=== PATIENT | female | born 1990 | race Caucasian/White ===

== ENCOUNTER 2016-10-30 17:39 | Emergency (ER) | payer OTHER ==
[2016-10-30 17:58] VITALS: BP 102/76; PULSE 109; TEMP 98.2; BMI 25.0
--- NOTE | 2016-10-30 17:59 | PDOC ---
History of Present Illness <Amada Camarillo - Last Filed: 10/30/16 23:55> <Sabina Mukherjee - Last Filed: 10/31/16 01:45> - General Chief Complaint: Syncope/Near Syncope Stated Complaint: SYNCOPE Time Seen by Provider: 10/30/16 17:42 - History of Present Illness Initial Comments: 10/30/16 20:12 The patient is a 26 year old female, , with no significant past medical history, who presents to the emergency department with s/p syncopal episode in the supermarket today. The patient states she fainted while shopping today, however, her caught her before she could fall to the floor. The patient reports one episode of vomiting yesterday. The patient reports her LMP was August 2016 and reports giving 5 months ago. She denies any vaginal bleeding since her last menstrual cycle. The patient also reports she stopped breast feeding 2 months ago. She denies chest pain, shortness of breath, headache and dizziness. She denies fever, chills, nausea, vomit, diarrhea and constipation. She denies dysuria, frequency, urgency and hematuria. Allergies: NKDA PCP - Dr. Winter Zuniga (Sabina Mukherjee) Past History - Past Medical History Asthma: No Cancer: No Cardiac Disorders: No Diabetes: No HTN: No Seizures: No Thyroid Disease: No Other medical history: - Psycho/Social/Smoking Cessation Hx Anxiety: No Suicidal Ideation: No Smoking History: Never smoked Have you smoked in the past 12 months: No Information on smoking cessation initiated: No Hx Alcohol Use: No Drug/Substance Use Hx: No Substance Use Type: None Hx Substance Use Treatment: No <Amada Camarillo - Last Filed: 10/30/16 23:55> <Sabina Mukherjee - Last Filed: 10/31/16 01:45> - Past Medical History Allergies/Adverse Reactions: Allergies Allergy/AdvReac Type Severity Reaction Status Date / Time No Known Allergies Allergy Verified 10/30/16 17:57 Home Medications: Ambulatory Orders NK [No Known Home Medication] 10/30/16 Review of Systems <Amada Camarillo - Last Filed: 10/30/16 23:55> - Review of Systems Able to Perform ROS?: Yes <Sabina Mukherjee - Last Filed: 10/31/16 01:45> - Review of Systems Comments:: 10/30/16 20:17 CONSTITUTIONAL: Absent: fever, chills, diaphoresis, generalized weakness, malaise, loss of appetite HEENT: Absent: rhinorrhea, nasal congestion, throat pain, throat swelling, difficulty swallowing, mouth swelling, ear pain, eye pain, visual Changes CARDIOVASCULAR: Absent: chest pain, syncope, palpitations, irregular heart rate, lightheadedness , peripheral edema RESPIRATORY: Absent: cough, shortness of breath, dyspnea with exertion, orthopnea, wheezing, stridor, hemoptysis GASTROINTESTINAL: (+) nausea, vomiting. Absent: abdominal pain, abdominal distension, diarrhea, constipation, melena, hematochezia GENITOURINARY: Absent: dysuria, frequency, urgency, hesitancy, hematuria, flank pain, genital pain MUSCULOSKELETAL: Absent: myalgia, arthralgia, joint swelling SKIN: Absent: rash, itching, pallor HEMATOLOGIC/IMMUNOLOGIC: Absent: easy bleeding, easy bruising, lymphadenopathy, frequent infections ENDOCRINE: Absent: unexplained weight gain, unexplained weight loss, heat intolerance, cold intolerance NEUROLOGIC: (+) Syncope. Absent: headache, focal weakness or paresthesias, dizziness, unsteady gait, seizure, mental status changes, bladder or bowel incontinence PSYCHIATRIC: Absent: anxiety, depression, suicidal or homicidal ideation, hallucinations. (Sabina Mukherjee) *Physical Exam <Amada Camarillo - Last Filed: 10/30/16 23:55> <Sabina Mukherjee - Last Filed: 10/31/16 01:45> - Vital Signs Last Vital Signs Temp Pulse Resp BP Pulse Ox 98.2 F 109 H 18 102/76 100 10/30/16 17:53 10/30/16 17:53 10/30/16 17:53 10/30/16 17:53 10/30/16 17:53 - Physical Exam Comments: 10/30/16 20:18 GENERAL: Well developed, well nourished. Awake and alert. No acute distress. HEENT: Normocephalic, atraumatic. PERRLA, EOMI. No conjunctival pallor. Sclera are non- icteric. Moist mucous membranes. Oropharynx is clear. NECK: Supple. Full ROM. No JVD. Carotid pulses 2+ and symmetric, without bruits. No thyromegaly. No lymphadenopathy. CARDIOVASCULAR: (+) tachycardic and normal rhythm. No murmurs, rubs, or gallops. Distal pulses are 2+ and symmetric. PULMONARY: No evidence of respiratory distress. Lungs clear to auscultation bilaterally. No wheezing, rales or rhonchi. ABDOMINAL: Soft. Non-tender. Non-distended. No rebound or guarding. No organomegaly. Normoactive bowel sounds. MUSCULOSKELETAL Normal range of motion at all joints. No bony deformities or tenderness. No CVA tenderness. EXTREMITIES: No cyanosis. No clubbing. No edema. No calf tenderness. SKIN: Warm and dry. Normal capillary refill. No rashes. No jaundice. NEUROLOGICAL: Alert, awake, appropriate. Cranial nerves 2-12 intact. Normoreflexic in the upper and lower extremities. Normal speech. Toes are down-going bilaterally. Gait is normal without ataxia. PSYCHIATRIC: Cooperative. Good eye contact. Appropriate mood and affect. (Sabina Mukherjee) Heart Score/ECG Review <Amada Camarillo - Last Filed: 10/30/16 23:55> <Sabina Mukherjee - Last Filed: 10/31/16 01:45> - [place] Comment: 10/30/16 20:20 EKG was read by Dr. Camarillo at 18:06 Impression: Normal sinus rhythm (Sabina Mukherjee) ED Treatment Course - LABORATORY CBC & Chemistry Diagram: 10/30/16 18:02 10/30/16 18:02 <Amada Camarillo - Last Filed: 10/30/16 23:55> - LABORATORY CBC & Chemistry Diagram: 10/30/16 18:02 10/30/16 18:02 <Sabina Mukherjee - Last Filed: 10/31/16 01:45> - ADDITIONAL ORDERS Additional order review: Laboratory Results 10/30/16 10/30/16 10/30/16 19:39 19:39 18:02 INR Sodium Potassium Chloride Carbon Dioxide Anion Gap BUN Creatinine Creat Clearance w eGFR Random Glucose Calcium Total Bilirubin AST ALT Alkaline Phosphatase Creatine Kinase Troponin I Total Protein Albumin Beta HCG, Quant 42167.2 Serum , Qual Positive Urine Color Urine Appearance Urine pH Ur Specific [place] Urine Protein Urine Glucose (UA) Urine Ketones Urine Blood Urine Nitrite Urine Bilirubin Urine Urobilinogen Ur Leukocyte Esterase Urine RBC Urine WBC Ur Epithelial Cells Urine Mucus Opiates Screen Negative Methadone Screen Negative Barbiturate Screen Negative Phencyclidine Screen Negative Ur Amphetamines Screen Negative MDMA (Ecstasy) Screen Negative Benzodiazepines Screen Negative Cocaine Screen Positive U Marijuana (THC) Screen Negative Blood Type Antibody Screen 10/30/16 10/30/16 10/30/16 18:02 18:02 18:02 INR Sodium 136 Potassium 3.3 L Chloride 105 Carbon Dioxide 19 L Anion Gap 12 BUN 10 D Creatinine 0.6 Creat Clearance w eGFR > 60 Random Glucose 93 Calcium 7.9 L Total Bilirubin 0.3 AST 13 L ALT 23 Alkaline Phosphatase 42 L Creatine Kinase 37 Troponin I < 0.02 Total Protein 6.6 Albumin 3.2 L Beta HCG, Quant Serum , Qual Urine Color Ltyellow Urine Appearance Clear Urine pH 6.0 Ur Specific [place] 1.008 Urine Protein Negative Urine Glucose (UA) Negative Urine Ketones 1+ H Urine Blood 3+ H Urine Nitrite Negative Urine Bilirubin Negative Urine Urobilinogen Negative Ur Leukocyte Esterase Trace H Urine RBC 3 Urine WBC 4 Ur Epithelial Cells Rare Urine Mucus Rare Opiates Screen Methadone Screen Barbiturate Screen Phencyclidine Screen Ur Amphetamines Screen MDMA (Ecstasy) Screen Benzodiazepines Screen Cocaine Screen U Marijuana (THC) Screen Blood Type A POSITIVE Antibody Screen Negative 10/30/16 18:02 INR 1.13 Sodium Potassium Chloride Carbon Dioxide Anion Gap BUN Creatinine Creat Clearance w eGFR Random Glucose Calcium Total Bilirubin AST ALT Alkaline Phosphatase Creatine Kinase Troponin I Total Protein Albumin Beta HCG, Quant Serum , Qual Urine Color Urine Appearance Urine pH Ur Specific [place] Urine Protein Urine Glucose (UA) Urine Ketones Urine Blood Urine Nitrite Urine Bilirubin Urine Urobilinogen Ur Leukocyte Esterase Urine RBC Urine WBC Ur Epithelial Cells Urine Mucus Opiates Screen Methadone Screen Barbiturate Screen Phencyclidine Screen Ur Amphetamines Screen MDMA (Ecstasy) Screen Benzodiazepines Screen Cocaine Screen U Marijuana (THC) Screen Blood Type Antibody Screen 10/30/16 18:02 RBC 3.03 L MCV 79.6 L MCHC 32.4 RDW 20.2 H D MPV 8.6 D Neutrophils % 82.6 Lymphocytes % 10.0 D Monocytes % 6.6 Eosinophils % 0.4 Basophils % 0.4 - RADIOLOGY Radiograph Interpretation: 10/30/16 23:03 Transvaginal US was read by Lea Chavez M.D.at 22:58 FINDINGS: Enlarged uterus. No visible intrauterine gestational sac. Hypervascular and markedly thickened endometrium, 5.8 cm thick. No adnexal masses appreciated. Findings suspicious for molar , but advise correlation with quantitative serial beta-hCG and follow-up ultrasound as clinically indicated to exclude possibility of nonvisualized ectopic . No ovarian torsion. Bilateral arterial and venous waveforms. Complex 2.8 cm corpus luteum left ovary. No free fluid. Unremarkable visualized portion of bladder. (Sabina Mukherjee) - Medications Given in the ED: ED Medications Discontinued Medications Generic Name Dose Route Start Last Admin Trade Name Freq PRN Reason Stop Dose Admin Sodium Chloride 1,000 mls @ 1,000 mls/hr 10/30/16 18:03 10/30/16 18:13 Normal Saline - IV 10/30/16 19:02 1,000 mls/hr ASDIR STA Administration Potassium Chloride 20 meq 10/30/16 19:50 10/30/16 20:24 K-Dur - PO 10/30/16 19:51 20 meq ONCE ONE Administration Medical Decision Making <Amada Camarillo - Last Filed: 10/30/16 23:55> <Sabina Mukherjee - Last Filed: 10/31/16 01:45> - Medical Decision Making 10/30/16 23:31 26 yo female had a fainting episode and her was [id number] caught her before she fell -no head trauma - no chest pain,no sob,no vaginal bleeding,no fever,no vomiting,no headache -labs reviewed -she has anemia. She denies any acute bleeding at this time -drug screen + cocaine -found to be and bhcg >29,000 PELVIC US-NO IUP -CONCERN FOR MOLAR -spoke w Dr Noel and this pt is to be seen in clinic in the morning -using a pork cutlet maker it was explained to this pt that is was very important to see the hardboard coating machine operator in the morning and that this preg will require Dand E (Amada Camarillo) 10/31/16 Dr. Noel ([facility] CHEMIST On-Call) was contacted for doctor to doctor consult and the patient's case was discussed. (Sabina Mukherjee) *DC/Admit/Observation/Transfer <Amada Camarillo - Last Filed: 10/30/16 23:55> <Sabina Mukherjee - Last Filed: 10/31/16 01:45> Diagnosis at time of Disposition: Positive test, Molar Anemia Qualifiers: Anemia type: other cause Other causes of anemia: other cause, not classified Qualified Code(s): D64.89 - Other specified anemias Fainting Qualifiers: Syncope type: unspecified Qualified Code(s): R55 - Syncope and collapse - Discharge Dispostion Disposition: HOME Condition at time of disposition: Stable - Referrals Referrals: Maria E Noel MD [Staff Physician] - - Patient Instructions Printed Discharge Instructions: DI for -- Discomforts and Remedies, DI for Syncope in Adults (Fainting) Additional Instructions: There is an abnormal finding on your pelvic ultrasound and there is concern for a MOLAR You have a positive test but no fetus is seen on the ultrasound TOMORROW you need to go to the clinic at [address] [place] [address] NOEL and DR MENDOZA will be. Go to the clinic at [address] [place] [address] ( [phone])and be seen in the area. Print Language: MALDIVIAN - Attestations Scribe Attestion: 10/30/16 20:20 Documentation prepared by Sabina Mukherjee, acting as biomedical engineering technologist for Amada Camarillo MD (Sabina Mukherjee)
[2016-10-30] MEDS ORDERED: SODIUM CHLORIDE 1,000 ML IV STA (18:03)
[2016-10-30 18:27] LABS: BASOPHIL 0.4 % (0-2.0); EOSINOPHIL 0.4 % (0-4.5); MCH 25.8 pg (25.7-33.7); MCHC 32.4 g/dl (32.0-36.0); MEAN CELL VOLUME 79.6 fl (80-96); MEAN PLT VOLUME 8.6 fl (7.5-11.1); NEUTROPHILS 82.6 % (42.8-82.8); PLATELET COUNT 239 K/MM3 (134-434); RDW 20.2 % (11.6-15.6)
[2016-10-30 18:39] LABS: INR 1.13 (0.82-1.09); PROTHROMBIN TIME (PATIENT) 12.5 SEC (9.98-11.88)
[2016-10-30 18:46] LABS: ALBUMIN 3.2 g/dl (3.4-5.0); ANION GAP 12 (8-16); BILIRUBIN,TOTAL 0.3 mg/dL (0.2-1.0); CALCIUM 7.9 mg/dL (8.5-10.1); CO2 19 mmol/L (21-32); CREATININE 0.6 mg/dL (0.55-1.02); GLUCOSE,RANDOM 93 mg/dL (74-106); SGOT/AST 13 U/L (15-37); SGPT/ALT 23 U/L (12-78); TOT PROT 6.6 g/dl (6.4-8.2)
[2016-10-30 18:48] LABS: ALK PHOS 42 U/L (45-117); TROPONIN I < 0.02 ng/ml (0.00-0.05)
[2016-10-30] MEDS ORDERED: POTASSIUM CHLORIDE TABS 20 MEQ TABLET.ER (FP) PO ONE ×2 (19:50→20:20)
[2016-10-30 20:02] LABS: URINE APPEARANCE CLEAR; URINE BILIRUBIN NEGATIVE (NEGATIVE); URINE COLOR LTYELLOW; URINE GLUCOSE (UA) NEGATIVE (NEGATIVE); URINE KETONE 1+ (NEGATIVE); URINE NITRITE NEGATIVE (NEGATIVE); URINE PROTEIN NEGATIVE (NEGATIVE); URINE UROBILINOGEN NEGATIVE E.U./dl (0.2-1.0)
[2016-10-30 20:12] LABS: URINE BLOOD 3+ (NEGATIVE); URINE LEUK ESTERASE TRACE (NEGATIVE)
[2016-10-30 20:17] LABS: URINE MUCUS RARE; URINE RBC 3 /hpf (0-3); URINE WBC 4 /hpf (3-5)
[2016-10-30 20:18] LABS: URINE MARIJUANA THC NEGATIVE ng/ml (CUTOFF=50)
--- NOTE | 2016-10-31 21:31 | EKG ---
Test Reason : Blood Pressure : / mmHG Vent. Rate : 080 BPM Atrial Rate : 080 BPM P-R Int : 148 ms QRS Dur : 078 ms QT Int : 396 ms P-R-T Axes : 065 030 051 degrees QTc Int : 456 ms NORMAL SINUS RHYTHM NORMAL ECG NO PREVIOUS ECGS AVAILABLE Confirmed by MAURA HICKEY MD ([id number]) on 10/31/2016 9:31:28 PM Referred By: Confirmed By:MAURA HICKEY MD
== END 2016-10-31 00:07 | disposition home or self-care (01) ==
LOC: JER 17:39
PROC: 3E0337Z Introduction of Electrolytic and Water Balance Substance into Peripheral Vein, Percutaneous Approach (ICD-10-PCS; principal; 2016-10-30)
DX: O02.0 Blighted ovum and nonhydatidiform mole (principal); O34.81 Maternal care for other abnormalities of pelvic organs, first trimester; N83.12 Corpus luteum cyst of left ovary; O99.011 Anemia complicating pregnancy, first trimester; Z3A.00 Weeks of gestation of pregnancy not specified
CPT/HCPCS: 36415; 76817-TC; 80053; 80307; 81003; 81015; 82550; 84484; 84702; 84703; 85025; 85610; 86850; 86900; 86901; 93005; 93010; 96360; 99285-25

== ENCOUNTER 2016-11-11 22:15 | Emergency (ER) | payer OTHER ==
--- NOTE | 2016-11-11 22:53 | PDOC ---
History of Present Illness - General Chief Complaint: Vaginal Bleeding Stated Complaint: VAGINAL BLEEDING Time Seen by Provider: 11/11/16 22:21 History Source: Patient Exam Limitations: No Limitations - History of Present Illness Travel History: No Timing/Duration: reports: getting worse Abdominal Pain Onset Location: reports: other (pelvic cramp) Pain Radiation: reports: no radiation Activities at Onset: reports: none Past History - Travel Traveled outside of the country in the last 30 days: No Close contact w/someone who was outside of country & ill: No - Past Medical History Allergies/Adverse Reactions: Allergies Allergy/AdvReac Type Severity Reaction Status Date / Time No Known Allergies Allergy Verified 11/11/16 22:35 Home Medications: Ambulatory Orders NK [No Known Home Medication] 10/30/16 Asthma: No Cancer: No Cardiac Disorders: No Diabetes: No HTN: No Seizures: No Thyroid Disease: No - Psycho/Social/Smoking Cessation Hx Anxiety: No Suicidal Ideation: No Smoking History: Current every day smoker Have you smoked in the past 12 months: No Information on smoking cessation initiated: No Hx Alcohol Use: No Drug/Substance Use Hx: No Substance Use Type: None Hx Substance Use Treatment: No Review of Systems - Review of Systems Able to Perform ROS?: Yes Comments:: 11/12/16 02:07 CONSTITUTIONAL: Absent: fever, chills, diaphoresis, generalized weakness, malaise, loss of appetite HEENT: Absent: rhinorrhea, nasal congestion, throat pain, throat swelling, difficulty swallowing, mouth swelling, ear pain, eye pain, visual Changes CARDIOVASCULAR: Absent: chest pain, loss of consciousness, palpitations, irregular heart rate, peripheral edema RESPIRATORY: Absent: cough, shortness of breath, dyspnea with exertion, orthopnea, wheezing, stridor, hemoptysis GASTROINTESTINAL: Absent: abdominal pain, abdominal distension, nausea, vomiting, diarrhea, constipation, melena, hematochezia GENITOURINARY: +vag bleed x3h/pelvic cramp Absent: dysuria, frequency, urgency, hesitancy, hematuria, flank pain, genital pain MUSCULOSKELETAL: Absent: myalgia, arthralgia, joint swelling SKIN: Absent: rash, itching, pallor HEMATOLOGIC/IMMUNOLOGIC: Absent: easy bleeding, easy bruising, lymphadenopathy, frequent infections ENDOCRINE: Absent: unexplained weight gain, unexplained weight loss, heat intolerance, cold intolerance NEUROLOGIC: Absent: headache, focal weakness or paresthesias, dizziness, unsteady gait, seizure, mental status changes, bladder or bowel incontinence PSYCHIATRIC: Absent: anxiety, depression, suicidal or homicidal ideation, hallucinations. Is the patient limited Turkish proficient: No *Physical Exam - Vital Signs Last Vital Signs Temp Pulse Resp BP Pulse Ox 98.3 F 127 H 20 122/77 100 11/11/16 22:35 11/11/16 22:35 11/11/16 22:35 11/11/16 22:35 11/11/16 22:35 - Physical Exam Comments: 11/12/16 02:08 GENERAL: Well developed, well nourished. Awake and alert. No acute distress. HEENT: Normocephalic, atraumatic. PERRLA, EOMI. No conjunctival pallor. Sclera are non- icteric. Moist mucous membranes. Oropharynx is clear. NECK: Supple. Full ROM. No JVD. Carotid pulses 2+ and symmetric, without bruits. No thyromegaly. No lymphadenopathy. CARDIOVASCULAR: Regular rate and rhythm. No murmurs, rubs, or gallops. Distal pulses are 2+ and symmetric. PULMONARY: No evidence of respiratory distress. Lungs clear to auscultation bilaterally. No wheezing, rales or rhonchi. ABDOMINAL: Soft. Non-tender. Non-distended. No rebound or guarding. No organomegaly. Normoactive bowel sounds. MUSCULOSKELETAL Normal range of motion at all joints. No bony deformities or tenderness. No CVA tenderness. EXTREMITIES: No cyanosis. No clubbing. No edema. No calf tenderness. SKIN: Warm and dry. Normal capillary refill. No rashes. No jaundice. NEUROLOGICAL: Alert, awake, appropriate. Cranial nerves 2-12 intact. No deficits to light touch and temperature in face, upper extremities and lower extremities. No motor deficits in the in face, upper extremities and lower extremities. Normoreflexic in the upper and lower extremities. Normal speech. Toes are down- going bilaterally. Gait is normal without ataxia. PSYCHIATRIC: Cooperative. Good eye contact. Appropriate mood and affect. ED Treatment Course - LABORATORY CBC & Chemistry Diagram: 11/11/16 22:45 11/11/16 22:54 Progress Note - Progress Note Progress Note: 26 yo F , presents to the emergency department this evening complaining of vaginal bleeding 3 days. Patient denies any nausea/vomiting, fever/chills, dizziness, lightheadedness, headaches, visual disturbance, chest pain, shortness of breath, abdominal pains or urinary symptoms: Frequency/urgency/ hesitancy, hematuria. Patient was seen in the emergency department on October 30 status post syncopal episode while in the supermarket. Her ultrasound showed that she had a molar . She was informed to follow-up at [facility] following day for OB consultation/oncology consultation. Patient states she never followed up because she felt well and is hoping that the ultrasound report is wrong. LMP 08/23/2017 10/30/2015: Beta HCG 63349.2 Today 11/12/2016: [address]70.[address] Alvarado/OB acquisition associate. req to transfer [facility] 0214hrs; Spoke to [facility]; Dr. Giordano/production sanitizer will accept pt through ER *DC/Admit/Observation/Transfer Diagnosis at time of Disposition: Molar Anemia Qualifiers: Anemia type: unspecified type Qualified Code(s): D64.9 - Anemia, unspecified - Discharge Dispostion Disposition: TRANSFER ACUTE CARE/OTHER HOSP Condition at time of disposition: Guarded - Referrals Referrals: Jeevan Miner [Primary Care Provider] - Jimbo Alvarado MD [Staff Physician] - - Patient Instructions Additional Instructions: Beta HCG 1770.2 - Transfer to Acute Care Facility Receiving Facility: [facility].
[2016-11-11 22:58] VITALS: BMI 23.3
[2016-11-11] MEDS ORDERED: ACETAMINOPHEN 325 MG TABLET (FP) PO ONE (23:38)
[2016-11-11] MEDS ORDERED: ACETAMINOPHEN 325 MG TABLET (FP) ONE (23:43)
[2016-11-11 23:49] LABS: ANION GAP 13 (8-16); BILIRUBIN,TOTAL 0.2 mg/dL (0.2-1.0); CALCIUM 8.1 mg/dL (8.5-10.1); CO2 22 mmol/L (21-32); CREATININE 0.5 mg/dL (0.55-1.02); GLUCOSE,RANDOM 93 mg/dL (74-106); SGOT/AST 7 U/L (15-37); SGPT/ALT 14 U/L (12-78); TOT PROT 6.8 g/dl (6.4-8.2)
[2016-11-12 00:04] LABS: ALK PHOS 60 U/L (45-117)
[2016-11-12 00:06] LABS: BASOPHIL 0.4 % (0-2.0); EOSINOPHIL 0.7 % (0-4.5); MEAN CELL VOLUME 78.7 fl (80-96); MEAN PLT VOLUME 7.7 fl (7.5-11.1); NEUTROPHILS 84.3 % (42.8-82.8); PLATELET COUNT 426 K/MM3 (134-434); RDW 19.3 % (11.6-15.6); WHITE BLOOD COUNT 11.5 K/mm3 (4.0-10.0)
--- NOTE | 2016-11-12 00:32 | PDOC ---
*Physical Exam - Vital Signs Last Vital Signs Temp Pulse Resp BP Pulse Ox 98.3 F 127 H 20 122/77 100 11/11/16 22:35 11/11/16 22:35 11/11/16 22:35 11/11/16 22:35 11/11/16 22:35 ED Treatment Course - LABORATORY CBC & Chemistry Diagram: 11/11/16 22:45 11/11/16 22:54 - ADDITIONAL ORDERS Additional order review: Laboratory Results 11/11/16 11/11/16 11/11/16 22:54 22:45 22:45 Sodium 139 Cancelled Potassium 4.0 D Cancelled Chloride 104 Cancelled Carbon Dioxide 22 Cancelled Anion Gap 13 Cancelled BUN 8 Cancelled Creatinine 0.5 L Cancelled Creat Clearance w eGFR > 60 Cancelled Random Glucose 93 Cancelled Calcium 8.1 L Cancelled Total Bilirubin 0.2 D Cancelled AST 7 L D Cancelled ALT 14 D Cancelled Alkaline Phosphatase 60 D Cancelled Total Protein 6.8 Cancelled Albumin 3.0 L Cancelled Beta HCG, Quant 1770.2 Blood Type A POSITIVE Antibody Screen Negative 11/11/16 22:45 RBC 2.38 L D MCV 78.7 L MCHC 33.0 RDW 19.3 H MPV 7.7 D Neutrophils % 84.3 H Lymphocytes % 9.8 Monocytes % 4.8 Eosinophils % 0.7 Basophils % 0.4 - Medications Given in the ED: ED Medications Discontinued Medications Generic Name Dose Route Start Last Admin Trade Name Freq PRN Reason Stop Dose Admin Acetaminophen 650 mg 11/11/16 23:38 11/11/16 23:45 Tylenol - PO 11/11/16 23:39 650 mg ONCE ONE Administration Medical Decision Making - Medical Decision Making 11/12/16 00:30 Patient seen and evaluated with the nurse practitioner. I agree with the overall evaluation, assessment, and management with the following summary of visit: 26y/o F diagnosed molar p/w persistent vaginal bleeding. Has been unable to follow up regarding her care. Tachycardic, BP stable Workup reveals worsening anemia to Hgb 6.2. Given symptomatic and tachycardia, will transfuse. *DC/Admit/Observation/Transfer Diagnosis at time of Disposition: Molar Anemia Qualifiers: Anemia type: unspecified type Qualified Code(s): D64.9 - Anemia, unspecified - Referrals Referrals: Jeevan Miner [Primary Care Provider] - - Patient Instructions Additional Instructions: Beta HCG 1770.2 - Post Discharge Activity
[2016-11-12 02:10] VITALS: BP 111/70; PULSE 96; TEMP 98.5
== END 2016-11-12 02:55 | disposition short-term general hospital (02) ==
LOC: JER 22:15
DX: O26.891 Other specified pregnancy related conditions, first trimester (principal); O02.0 Blighted ovum and nonhydatidiform mole; D64.9 Anemia, unspecified; F17.210 Nicotine dependence, cigarettes, uncomplicated
CPT/HCPCS: 36415; 36430; 76817-TC; 80053; 84702; 85025; 86850; 86900; 86901; 86922; 99285-25; P9038; P9058

== ENCOUNTER 2017-07-22 05:14 | Inpatient (IN) | payer OTHER ==
--- NOTE | 2017-07-22 05:16 | PDOC ---
History of Present Illness - General History Source: Patient Exam Limitations: Language Barrier (Surinamese limited) - History of Present Illness Initial Comments: 07/22/17 05:44 The patient is a 26 year old female A1 (1x molar ) with no other significant PMH who presents to the emergency department with vaginal bleeding beginning approximately 4 hours ago. The patient reports sitting in her house when she noticed the onset of her vaginal bleeding. She reports going through 2 pads an hour while bleeding. The patient also reports associated lightheadedness. The patient reports being at [place] in November for a similar complaint, which was determined to be a molar . EMS reports the patient states she believes she may be having a miscarriage due to prior experience, and EMS noted the presence of products of conception. The patient reports that she was unaware of her current . The patient denies chest pain, shortness of breath, headache and dizziness. Denies fever, chills, nausea, vomit, diarrhea and constipation. Denies dysuria, frequency, urgency and hematuria. Allergies: NKA Past surgical history: None reported. Social history: Moderate smoker. No reported alcohol or drug use. PCP: None reported. <Heber Zelaya - Last Filed: 07/22/17 05:44> <Kalra Olmstead - Last Filed: 07/22/17 19:42> - General Stated Complaint: VAG BLEED Time Seen by Provider: 07/22/17 05:16 Past History <Heber Zelaya - Last Filed: 07/22/17 05:44> - Past Medical History Asthma: No Cancer: No Cardiac Disorders: No Diabetes: No HTN: No Seizures: No Thyroid Disease: No - Reproductive History (#): 3 Para: 2 - Suicide/Smoking/Psychosocial Hx Smoking History: Current every day smoker Have you smoked in the past 12 months: No Hx Alcohol Use: No Drug/Substance Use Hx: No Substance Use Type: None Hx Substance Use Treatment: No <Karla Olmstead - Last Filed: 07/22/17 19:42> - Past Medical History Allergies/Adverse Reactions: Allergies Allergy/AdvReac Type Severity Reaction Status Date / Time No Known Allergies Allergy Verified 07/22/17 05:18 Home Medications: Ambulatory Orders NK [No Known Home Medication] 10/30/16 Review of Systems - Review of Systems Able to Perform ROS?: Yes Comments:: 07/22/17 05:44 GENERAL/CONSTITUTIONAL: No fever or chills. No weakness. HEAD, EYES, EARS, NOSE AND THROAT: No change in vision. No ear pain or discharge. No sore throat. CARDIOVASCULAR: No chest pain or shortness of breath. RESPIRATORY: No cough, wheezing, or hemoptysis. GASTROINTESTINAL: No nausea, vomiting, diarrhea or constipation. GENITOURINARY: (+) Vaginal bleeding.No dysuria, frequency, or change in urination. MUSCULOSKELETAL: No joint or muscle swelling or pain. No neck or back pain. SKIN: No rash NEUROLOGIC: (+) Lightheadedness. No headache, vertigo, loss of consciousness, or change in strength. ENDOCRINE: No increased thirst. No abnormal weight change. HEMATOLOGIC/LYMPHATIC: No anemia, easy bleeding, or history of blood clots. ALLERGIC/IMMUNOLOGIC: No hives or skin allergy. <Heber Zelaya - Last Filed: 07/22/17 05:44> *Physical Exam - Vital Signs Last Vital Signs Temp Pulse Resp BP Pulse Ox 98.5 F 96 H 22 95/54 98 07/22/17 05:19 07/22/17 05:19 07/22/17 05:19 07/22/17 05:19 07/22/17 05:19 <Heber Zelaya - Last Filed: 07/22/17 05:44> ED Treatment Course - Medications Given in the ED: ED Medications Discontinued Medications Generic Name Dose Route Start Last Admin Trade Name Freq PRN Reason Stop Dose Admin Sodium Chloride 500 ml 07/22/17 05:18 07/22/17 05:30 Normal Saline - IV 07/22/17 05:19 500 ml ONCE ONE Administration <Heber Zelaya - Last Filed: 07/22/17 05:44> - LABORATORY CBC & Chemistry Diagram: 07/22/17 16:30 07/22/17 05:23 <Karla Olmstead - Last Filed: 07/22/17 19:42> Medical Decision Making - Medical Decision Making 07/22/17 06:51 Pt comes with vag bleed. Thinks she is not sure.They wikk States that she had a molar preg and D+C in the past. A1 Now with hcg of 8700 Cervical os open and + blood clots in vault. I spoke to Dr. Alvarado who will consult once ultrasound is done. 07/22/17 06:53 Pt will be signed out to day ER team. They will follow the ultrasound <Karla Olmstead - Last Filed: 07/22/17 19:42> *DC/Admit/Observation/Transfer <Heber Zelaya - Last Filed: 07/22/17 05:44> <Karla Olmstead - Last Filed: 07/22/17 19:42> Diagnosis at time of Disposition: Incomplete - Discharge Dispostion Condition at time of disposition: Good
[2017-07-22] MEDS ORDERED: SODIUM CHLORIDE 0.9% 1000 ML INFUS.BAG IV ONE (05:18)
[2017-07-22 05:53] LABS: BASOPHIL 0.3 % (0-2.0); EOSINOPHIL 0.1 % (0-4.5); MCHC 32.6 g/dl (32.0-36.0); MEAN CELL VOLUME 82.7 fl (80-96); MEAN PLT VOLUME 9.3 fl (7.5-11.1); NEUTROPHILS 87.7 % (42.8-82.8); PLATELET COUNT 290 K/MM3 (134-434); RDW 17.5 % (11.6-15.6); WHITE BLOOD COUNT 12.5 K/mm3 (4.0-10.0)
[2017-07-22 06:03] LABS: INR 1.19 (0.82-1.09); PROTHROMBIN TIME (PATIENT) 13.5 SEC (9.98-11.88)
[2017-07-22 06:15] LABS: ALBUMIN 3.4 g/dl (3.4-5.0); ANION GAP 16 (8-16); BILIRUBIN,TOTAL 0.3 mg/dL (0.2-1.0); CALCIUM 7.9 mg/dL (8.5-10.1); CO2 18 mmol/L (21-32); CREATININE 0.6 mg/dL (0.55-1.02); GLUCOSE,RANDOM 104 mg/dL (74-106); SGOT/AST 12 U/L (15-37); SGPT/ALT 20 U/L (12-78); TOT PROT 7.1 g/dl (6.4-8.2)
[2017-07-22 06:30] LABS: ALK PHOS 42 U/L (45-117)
--- NOTE | 2017-07-22 08:21 | PDOC ---
*Physical Exam - Vital Signs Last Vital Signs Temp Pulse Resp BP Pulse Ox 98.5 F 96 H 22 95/54 98 07/22/17 05:19 07/22/17 05:19 07/22/17 05:19 07/22/17 05:19 07/22/17 05:19 - Physical Exam Comments: 07/22/17 08:47 GENERAL: Awake, alert, and fully oriented, Lethargic appearing. HEAD: No signs of trauma, normocephalic, atraumatic EYES: Sclera anicteric, conjunctiva clear ENT: Auricles normal inspection, hearing grossly normal, nares patent, oropharynx clear without exudates. Moist mucosa NECK: Normal ROM, no JVD, or masses LUNGS: No distress, speaks full sentences, clear to auscultation bilaterally HEART: Regular rate and rhythm, normal S1 and S2, no murmurs, rubs or gallops, peripheral pulses normal and equal bilaterally. ABDOMEN: Soft, Lower quadrant ttp. normoactive bowel sounds. No guarding, no rebound, no rigidity. No masses, CVA ttp. EXTREMITIES : Normal inspection, Normal range of motion, no edema. No clubbing or cyanosis. SKIN: Pale appearing. Warm, Dry, normal turgor, no rashes or lesions noted. ED Treatment Course - LABORATORY CBC & Chemistry Diagram: 07/22/17 09:04 07/22/17 05:23 - ADDITIONAL ORDERS Additional order review: Laboratory Results 07/22/17 07/22/17 07/22/17 05:23 05:23 05:23 PT with INR 13.50 H INR 1.19 H PTT (Actin FS) Sodium 139 Potassium 3.9 Chloride 105 Carbon Dioxide 18 L Anion Gap 16 BUN 12 D Creatinine 0.6 Creat Clearance w eGFR > 60 Random Glucose 104 Calcium 7.9 L Total Bilirubin 0.3 D AST 12 L D ALT 20 D Alkaline Phosphatase 42 L D Total Protein 7.1 Albumin 3.4 Beta HCG, Quant 8710.7 Blood Type 07/22/17 07/22/17 05:23 05:23 PT with INR INR PTT (Actin FS) 25.0 L Sodium Potassium Chloride Carbon Dioxide Anion Gap BUN Creatinine Creat Clearance w eGFR Random Glucose Calcium Total Bilirubin AST ALT Alkaline Phosphatase Total Protein Albumin Beta HCG, Quant Blood Type A POSITIVE 07/22/17 05:23 RBC 3.25 L D MCV 82.7 MCHC 32.6 RDW 17.5 H MPV 9.3 D Neutrophils % 87.7 H Lymphocytes % 8.9 Monocytes % 3.0 L Eosinophils % 0.1 D Basophils % 0.3 - Medications Given in the ED: ED Medications Discontinued Medications Generic Name Dose Route Start Last Admin Trade Name Shawna PRN Reason Stop Dose Admin Sodium Chloride 500 ml 07/22/17 05:18 07/22/17 05:30 Normal Saline - IV 07/22/17 05:19 500 ml ONCE ONE Administration Medical Decision Making - Medical Decision Making 07/22/17 08:22 26 yo . 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 Pt. reports sitting in her house when she noticed onset of vaginal bleeding. Seen at [place] in November for a similar complaint, later determined to be a molar . The patient reports that she was unaware of her current . Physical exam reveals patient pale appearing and lower abdominal ttp. Currently hypotensive with SBP 70s-90s through course of hospital stay. ED Course: 07/22/17 08:50 CBC, CMP, PT/INR, BHCG EKG, Pelvic U/S IV NS 1.5 L 07/22/17 08:51 WBC: 12.5 H/H: 8.8/26.9 07/22/17 08:52 BHC 07/22/17 09:34 Repeat H/H: 6.7/20.1 07/22/17 09:35 2 U PRBC 07/22/17 10:28 Pelvic U/S: No intrauterine gestational sac. Thickening of endometrium. Correlate clinically with ADJUNCT FACULTY INSTRUCTOR evaluation. Cannot exclude ectopic. Continue serial HCG. 07/22/17 10:38 Dr. Alvarado ADJUNCT FACULTY INSTRUCTOR: will admit pt. and perform D&C. 07/22/17 10:52 *DC/Admit/Observation/Transfer Diagnosis at time of Disposition: Incomplete - Referrals Referrals: Jeevan Miner [Primary Care Provider] - - Patient Instructions - Post Discharge Activity
[2017-07-22] MEDS ORDERED: SODIUM CHLORIDE 1,000 ML IV STA (08:27)
[2017-07-22 09:19] LABS: BASOPHIL 0.3 % (0-2.0); MCH 27.9 pg (25.7-33.7); MCHC 33.5 g/dl (32.0-36.0); MEAN CELL VOLUME 83.1 fl (80-96); MEAN PLT VOLUME 8.1 fl (7.5-11.1); NEUTROPHILS 86.3 % (42.8-82.8); PLATELET COUNT 209 K/MM3 (134-434); WHITE BLOOD COUNT 9.5 K/mm3 (4.0-10.0)
[2017-07-22 11:58] VITALS: BMI 27.4
--- NOTE | 2017-07-22 15:05 | EKG ---
Test Reason : Blood Pressure : / mmHG Vent. Rate : 085 BPM Atrial Rate : 085 BPM P-R Int : 128 ms QRS Dur : 078 ms QT Int : 396 ms P-R-T Axes : 062 035 041 degrees QTc Int : 471 ms NORMAL SINUS RHYTHM NONSPECIFIC ST ABNORMALITY ABNORMAL ECG WHEN COMPARED WITH ECG OF 30-OCT-2016 18:06, NO SIGNIFICANT CHANGE WAS FOUND CLINICAL CORRELATION IS RECOMMENDED Confirmed by JEN VALENTIN MD ([id number]) on 07/22/2017 3:04:41 PM Referred By: Confirmed By:JEN VALENTIN MD
[2017-07-22] MEDS ORDERED: PROPOFOL 20 ML ONE ×2 (15:25→15:50)
[2017-07-22] MEDS ORDERED: DEXAMETHASONE SOD PHOSPHATE 4 MG/1 ML VIAL ONE (15:32)
[2017-07-22] MEDS ORDERED: ONDANSETRON 4 MG/2 ML VIAL ONE (15:32)
--- NOTE | 2017-07-22 16:08 | HP ---
Admitting History and Physical - Admission Chief Complaint: vaginal bleeding History of Present Illness: 26 coems to er with complaints of vaginal bleeding. Pt did not know she was . Her h/h dropped from 8 to 6 and started transfusion. Pt lulu have d n c . SHe has had a molar preg in the past and did not seek medical care for this preg. 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: Alzheimer's, CVA, Dementia, Migraine, Multiple Sclerosis, Peripheral Neuropathy, Parkinson's, Seizure, Syncope, TIA, Vertigo, Other Cardiovascular: No: AFIB, Aneurysm, Aortic Insufficiency, Aortic Stenosis, CAD, CHF, Deep Vein Thrombosis, HTN, Hyperlipdemia, [place], Mitral Insufficiency, Mitral Stenosis, Murmur, Pulmonary Hypertension, Other Pulmonary: No: Asthma, Bronchitis, Cancer, COPD, O2 Dependent, Pneumonia, Previously Intubated, Pulmonary Embolus, Pulmonary Fibrosis, Sleep Apnea, Other Gastrointestinal: No: Ascites, Cancer, Constipation, Crohn's Disease, Diverticulitis, Diverticulosis, Esophageal Varices, Gastritis, GERD, GI Bleed, Hemorrhoids, Hiatal Hernia, Inflamatory Bowel Disease, Irritable Bowel Disease, Pancreatitis, Peptic Ulcer Disease, Ulcerative Colitis, Other Hepatobiliary: No: Cirrhosis, Cholelithiasis, Cholecystitis, Choledocholithiasis , Hepatitis A, Hepatitis B, Hepatitis C, Other Renal/: No: Renal Failure, Renal Inusuff, BPH, Cancer, Hematuria, Hemodialysis , Neurogenic Bladder, Renal Calculi, UTI, Other Reproductive: No: Ectopic , Endometriosis, Fibroids, PID, Polycystic Ovary Syndrome, Postmenopausal, Other ...: Yes Heme/Onc: No: Anemia, B12 Deficiency, Bleeding Disorder, Cancer, Current Chemotherapy, Current Radiation Therapy, Hemochromatosis, Hypercoaguable State, Myeloproliferative Synd, Sickle Cell Disease, Sickle Cell Trait, Thrombocytopenia, Other Infectious Disease: No: AIDS, C-Diff, Herpes Zoster, HIV, MRSA, STD's, Tuberculosis, VREF, Other Psych: No: Addictions, Anxiety, Bipolar, Depression, Panic, Psychosis, Schizophrenia, Other Musculoskeletal: No: Bursitis, Chronic low back pain, Hemiparesis, Hemiplegia, Osteoarthritis, Paraplegia, Other Rheumatology: No: Fibromyalgia, Gout, Lupus, Rheumatoid Arthritis, Sarcoidosis, Vasculitis, Other Endocrine: No: [place]ur[place]'s Disease, Barney's Disease, Diabetes Insipidus, Diabetes Mellitus, Hyperparathyroidism, Hyperthyroidism, Hypothyroidism, Osteopenia, SIADH, Other Dermatology: No: Basal Cell, Cellulitis, Eczema, Melanoma, Psoriasis, Squamous Cell, Other - Advance Directives Advance Directives: No: Living Will, Health Care Proxy, DNR, Organ Donor, Tissue Donor, MOLST - Smoking History Smoking history: Never smoked Have you smoked in the past 12 months: No - Alcohol/Substance Use Hx Alcohol Use: No Home Medications - Allergies Allergies/Adverse Reactions: Allergies Allergy/AdvReac Type Severity Reaction Status Date / Time No Known Allergies Allergy Verified 07/22/17 05:18 - Home Medications Home Medications: Ambulatory Orders NK [No Known Home Medication] 10/30/16 Review of Systems - Review of Systems Constitutional: reports: Lethargy Eyes: reports: No Symptoms HENT: reports: No Symptoms Neck: reports: No Symptoms Cardiovascular: reports: No Symptoms Respiratory: reports: No Symptoms Gastrointestinal: reports: No Symptoms Genitourinary: reports: No Symptoms Musculoskeletal: reports: No Symptoms Integumentary: reports: No Symptoms Neurological: reports: No Symptoms Endocrine: reports: No Symptoms Hematology/Lymphatic: reports: No Symptoms Psychiatric: reports: No Symptoms Physical Examination Vital Signs: Vital Signs Temperature 98.8 F 07/22/17 14:45 Pulse Rate 84 07/22/17 14:45 Respiratory Rate 18 07/22/17 14:45 Blood Pressure 96/53 07/22/17 14:45 O2 Sat by Pulse Oximetry (%) 98 07/22/17 14:45 Constitutional: Yes: Well Nourished Eyes: Yes: WNL HENT: Yes: WNL Neck: Yes: WNL Cardiovascular: Yes: WNL Respiratory: Yes: WNL Gastrointestinal: Yes: WNL ...Rectal Exam: Yes: WNL Renal/: Yes: WNL Neurological: Yes: WNL ...Motor Strength: WNL Psychiatric: Yes: WNL Labs: CBC, BMP 07/22/17 09:04 07/22/17 05:23 Assessment/Plan as above will have d n c
[2017-07-22 16:56] LABS: BASOPHIL 0.3 % (0-2.0); EOSINOPHIL 0.5 % (0-4.5); MCH 28.7 pg (25.7-33.7); MCHC 33.7 g/dl (32.0-36.0); MEAN CELL VOLUME 85.2 fl (80-96); MEAN PLT VOLUME 9.2 fl (7.5-11.1); NEUTROPHILS 69.1 % (42.8-82.8); PLATELET COUNT 210 K/MM3 (134-434); RDW 16.4 % (11.6-15.6); WHITE BLOOD COUNT 7.8 K/mm3 (4.0-10.0)
[2017-07-23 01:04] VITALS: BP 93/47; PULSE 68; TEMP 98.2
--- NOTE | 2017-07-23 08:41 | PN ---
Progress Note (short form) - Note Progress Note: Anesthesia Post op Pt seen and examined S:alert and awake O: Vital Signs Temperature 98.2 F 07/22/17 22:00 Pulse Rate 68 07/22/17 22:00 Respiratory Rate 20 07/22/17 22:00 Blood Pressure 93/47 07/22/17 22:00 O2 Sat by Pulse Oximetry (%) 100 07/22/17 17:51 CBC, BMP 07/22/17 16:30 07/22/17 05:23 A/P:s/p D&C Doing well post op Continue current care Yury Solares MD
--- NOTE | 2017-07-24 16:26 | PATH ---
Surgical Pathology Report Patient Name: PATRICIA PASTRANA Med. Rec. #: [id number] /Age/Gender: 1990 (Age: 26) / F Account: [id number] Location: [facility] MED/SURG Taken: 07/22/2017 Received: 07/23/2017 Reported: 07/24/2017 Physicians: Jimbo Alvarado M.D. Specimen(s) Received UTERINE CONTENTS Clinical History Incomplete Final Diagnosis UTERINE CONTENTS, DILATATION AND CURETTAGE: NECROTIC CHORIONIC VILLI, DECIDUA, AND GESTATIONAL ENDOMETRIUM CONSISTENT WITH PRODUCTS OF CONCEPTION. Electronically Signed Madelaine Nunn M.D. Gross Description Received in formalin labeled "uterine contents," is a 14.5 x 13.0 x 2.2 cm aggregate of shah-brown tissue fragments admixed with blood clot. No definite villous tissue or somatic tissue is identified. Boiler Tester sections are submitted in 3 cassettes. /07/23/2017 saudi07/23/2017
== END 2017-07-22 22:15 | disposition home or self-care (01) | DRG 560 ==
LOC: JER 05:14 → INTOOBSV 11:14 → JERBED 11:14 → UNDOADMOB 11:14 → JERBED 11:45 → J7W 19:31
PROVIDERS: ADMIT Obstetrics & Gynecology; ATTEND Obstetrics & Gynecology
PROC: 30233N1 Transfusion of Nonautologous Red Blood Cells into Peripheral Vein, Percutaneous Approach (ICD-10-PCS; 2017-07-22)
PROC: 10D07Z8 Extraction of Products of Conception, Other, Via Natural or Artificial Opening (ICD-10-PCS; principal; 2017-07-22 15:30)
DX: O03.4 Incomplete spontaneous abortion without complication (principal); R71.0 Precipitous drop in hematocrit
CPT/HCPCS: 36415; 36430; 76856-TC; 80053; 84702; 85025; 85610; 85730; 86850; 86870; 86886; 86900; 86901; 86902; 86922; 88305-TC; 93005; 93010; 94760; 99285-25; P9038; P9058

== ENCOUNTER 2018-04-14 06:12 | Inpatient (IN) | payer OTHER ==
[2018-04-14] MEDS ORDERED: MORPHINE SULFATE 2 MG/ML VIAL ONE (06:20)
[2018-04-14] MEDS ORDERED: morphine CARPU-JECT 2 MG/1 ML DISP.SYRIN IVPUSH ONE (06:25)
--- NOTE | 2018-04-14 06:26 | PDOC ---
History of Present Illness - General History Source: Patient, EMS Exam Limitations: No Limitations - History of Present Illness Initial Comments: 04/14/18 06:38 The patient is a 4 months 27 year old female A1, with a significant past medical history of miscarriage, who presents to the emergency department with lower abdominal pain and vaginal bleeding beginning at 5am this morning. The patient states she woke up at 5am and had the urge to urinate but states when she went to the restroom she began bleeding heavily and notified EMS for help. The patient states she has a history of a miscarriage a few months ago. The patient states she is blood type A+. The patient reports her last cocaine use was 6 days ago. The patient denies chest pain, shortness of breath, headache and dizziness. Denies fever, chills, nausea, vomit, diarrhea and constipation. Denies dysuria, frequency, urgency. Allergies: NKA <Juan Venegas - Last Filed: 04/14/18 06:51> <Karla Olmstead - Last Filed: 04/15/18 06:40> - General Chief Complaint: Vaginal Bleeding Stated Complaint: VAG BLEED Time Seen by Provider: 04/14/18 06:25 Past History <Juan Venegas - Last Filed: 04/14/18 06:51> - Past Medical History Asthma: No Cancer: No Cardiac Disorders: No Diabetes: No HTN: No Seizures: No Thyroid Disease: No - Reproductive History (#): 3 Para: 2 Spontaneous : 1 - Suicide/Smoking/Psychosocial Hx Smoking History: Never smoked Have you smoked in the past 12 months: No Information on smoking cessation initiated: No Hx Alcohol Use: No Drug/Substance Use Hx: No Substance Use Type: None Hx Substance Use Treatment: No <Karla Olmstead - Last Filed: 04/15/18 06:40> - Past Medical History Allergies/Adverse Reactions: Allergies Allergy/AdvReac Type Severity Reaction Status Date / Time No Known Allergies Allergy Verified 04/14/18 06:23 Home Medications: Ambulatory Orders NK [No Known Home Medication] 10/30/16 Review of Systems - Review of Systems Comments:: 04/14/18 06:42 GENERAL/CONSTITUTIONAL: No fever or chills. No weakness. HEAD, EYES, EARS, NOSE AND THROAT: No change in vision. No ear pain or discharge. No sore throat. CARDIOVASCULAR: No chest pain or shortness of breath. RESPIRATORY: No cough, wheezing, or hemoptysis. GASTROINTESTINAL: +Lower abdominal pain. No nausea, vomiting, diarrhea or constipation. GENITOURINARY: +Vaginal bleeding. No dysuria, frequency, or change in urination. MUSCULOSKELETAL: No joint or muscle swelling or pain. No neck or back pain. SKIN: No rash NEUROLOGIC: No headache, vertigo, loss of consciousness, or change in strength/ sensation. ENDOCRINE: No increased thirst. No abnormal weight change. HEMATOLOGIC/LYMPHATIC: No anemia, easy bleeding, or history of blood clots. ALLERGIC/IMMUNOLOGIC: No hives or skin allergy. <Juan Venegas Last Filed: 04/14/18 06:51> *Physical Exam - Vital Signs Last Vital Signs Temp Pulse Resp BP Pulse Ox 98.9 F 84 24 116/73 99 04/14/18 06:15 04/14/18 06:15 04/14/18 06:15 04/14/18 06:15 04/14/18 06:15 - Physical Exam Comments: 04/14/18 06:39 GENERAL: Afebrile. Awake, alert, and fully oriented. HEAD: No signs of trauma EYES: PERRLA, EOMI, sclera anicteric, conjunctiva clear NECK: Normal ROM, supple, no lymphadenopathy, JVD, or masses LUNGS: Breath sounds equal, clear to auscultation bilaterally. No wheezes, and no crackles HEART: Regular rate and rhythm, normal S1 and S2, no murmurs, rubs or gallops ABDOMEN: (+) Fundus of uterus is 3-4 cm jorge to her umbilicus. No guarding, no rebound. Soft. EXTREMITIES: Normal range of motion, no edema. No clubbing or cyanosis. No cords, erythema, or tenderness NEUROLOGICAL: Cranial nerves II through XII grossly intact. Normal speech. SKIN: Warm, Dry, normal turgor, no rashes or lesions noted. <Juan Venegas Last Filed: 04/14/18 06:51> - Vital Signs Last Vital Signs Temp Pulse Resp BP Pulse Ox 98.9 F 84 24 116/73 99 04/14/18 06:15 04/14/18 06:15 04/14/18 06:15 04/14/18 06:15 04/14/18 06:15 <Karla Olmstead - Last Filed: 04/15/18 06:40> Heart Score/ECG Review - ECG Intrepretation Rhythm: Regular Rhythm - [place]: Normal - P and [place] Delta Wave(s) Present: No WPW: No - ST and T Flattened T Waves: No Prolonged Q-T Interval: Yes - ECG Impressions Normal ECG: Yes Non-specific ST Elevation: No Ischemic Changes: No <AyshaKarla - Last Filed: 04/15/18 06:40> ED Treatment Course - LABORATORY CBC & Chemistry Diagram: 04/14/18 06:20 04/14/18 06:20 - Medications Given in the ED: ED Medications Discontinued Medications Generic Name Dose Route Start Last Admin Trade Name Shawna PRN Reason Stop Dose Admin Morphine Sulfate 2 mg 04/14/18 06:25 04/14/18 06:29 Morphine Injection - IVPUSH 04/14/18 06:26 2 mg ONCE ONE Administration Sodium Chloride 1,000 ml 04/14/18 06:27 04/14/18 06:30 Normal Saline - IV 04/14/18 06:28 1,000 ml ONCE ONE Administration <Juan Venegas - Last Filed: 04/14/18 06:51> - LABORATORY CBC & Chemistry Diagram: 04/14/18 06:20 04/14/18 06:20 <AyshaKarla - Last Filed: 04/15/18 06:40> Medical Decision Making - Medical Decision Making 04/14/18 06:34 Pt comes with miscarriage. open os, profuse bleeding. She was stabilized in the ER and labs sent and IVF running. Morphine 2mg given for pain. I spoke to Dr. Bailey on L+D and pt is to go to L+D at this time, as she is 4mos . 04/15/18 06:39 Pt admitted her last cocaine use was 6 days ago; she is a smoker of cigarettes and she occasionally drinks ETOH. SHe has a hx of miscarriage in the past. <Karla Olmstead - Last Filed: 04/15/18 06:40> *DC/Admit/Observation/Transfer - Attestations Scribe Attestion: 04/14/18 06:42 Documentation prepared by Juan Venegas, acting as chief medical physicist for Karla Olmstead MD. <Juan Venegas - Last Filed: 04/14/18 06:51> <Karla Olmstead - Last Filed: 04/15/18 06:40> Diagnosis at time of Disposition: Miscarriage - Discharge Dispostion Condition at time of disposition: Stable
[2018-04-14] MEDS ORDERED: SODIUM CHLORIDE 0.9% 500 ML INFUS.BAG IV ONE (06:27)
[2018-04-14 06:34] LABS: BASO % 0.6 % (0-2.0); EOS % 2.3 % (0-4.5); HEMATOCRIT 28.8 % (32.4-45.2); HEMOGLOBIN 9.8 GM/dL (10.7-15.3); LYMPH % 26.3 % (8-40); MCHC 34.2 g/dl (32.0-36.0); MEAN PLT VOLUME 8.5 fl (7.5-11.1); MONO % 7.2 % (3.8-10.2); NEUT % 63.6 % (42.8-82.8); PLATELET COUNT 260 K/MM3 (134-434); RBC 3.51 M/mm3 (3.60-5.2); RDW 17.7 % (11.6-15.6); WHITE BLOOD COUNT 8.9 K/mm3 (4.0-10.0)
[2018-04-14 06:57] LABS: INR 1.16 (0.83-1.09); PROTHROMBIN TIME (PATIENT) 13.1 SEC (9.7-13.0)
[2018-04-14 06:59] LABS: ALBUMIN 3.3 g/dl (3.4-5.0); ANION GAP 12 (8-16); BLOOD UREA NITROGEN 8 mg/dL (7-18); CALCIUM 8.5 mg/dL (8.5-10.1); CHLORIDE 101 mmol/L (98-107); CO2 24 mmol/L (21-32); GLUCOSE,RANDOM 99 mg/dL (74-106); POTASSIUM 3.4 mmol/L (3.5-5.1); SGOT/AST 15 U/L (15-37); SODIUM 137 mmol/L (136-145)
[2018-04-14 07:01] LABS: ALK PHOS 51 U/L (45-117); BILIRUBIN,TOTAL 0.6 mg/dL (0.2-1.0); CREATININE 0.6 mg/dL (0.55-1.02); SGPT/ALT 22 U/L (12-78); TOT PROT 7.2 g/dl (6.4-8.2)
[2018-04-14] MEDS ORDERED: DEXTROSE 5%-LACTATED RINGERS 1,000 ML IV SCH (07:30)
[2018-04-14 07:44] LABS: URINE APPEARANCE SLCLOUDY; URINE BILIRUBIN NEGATIVE (<2.0 mg/dL); URINE COLOR YELLOW; URINE GLUCOSE (UA) NEGATIVE (NEGATIVE); URINE KETONE 2+ (NEGATIVE); URINE NITRITE NEGATIVE (NEGATIVE); URINE UROBILINOGEN NEGATIVE mg/dL (0.2-1.0)
[2018-04-14 08:03] LABS: URINE LEUK ESTERASE 1+ (NEGATIVE); URINE PROTEIN 2+ (NEGATIVE)
[2018-04-14 08:09] LABS: EPI CELLS RARE /HPF (FEW); URINE BACTERIA RARE /hpf (NONE SEEN); URINE HYALINE CAST 4 /lpf; URINE MUCUS MODERATE
[2018-04-14 08:10] VITALS: BP 101/60; PULSE 90; TEMP 98.4; BMI 27.3
[2018-04-14] MEDS ORDERED: AMPICILLIN - 2 GM in SODIUM CHLORIDE 100 ML IVPB ONE (08:10)
[2018-04-14] MEDS ORDERED: AMPICILLIN SODIUM 2 GM VIAL ONE (08:11)
[2018-04-14 09:42] LABS: METHADONE, UR NEGATIVE ng/ml (CUTOFF=300); PHENCYCLIDINE,URINE NEGATIVE ng/ml (CUTOFF=25); URINE AMPHETAMINES NEGATIVE ng/ml (CUTOFF=500); URINE BARBITURATES NEGATIVE ng/ml (CUTOFF=200); URINE BENZODIAZEPINES NEGATIVE ng/ml (CUTOFF=200)
[2018-04-14 09:43] LABS: COCAINE, UR POSITIVE ng/ml (CUTOFF=300); OPIATES, URI POSITIVE ng/ml (CUTOFF=300)
--- NOTE | 2018-04-14 10:03 | HP ---
Past Medical History - Admission Chief Complaint: vaginal bleeding/leakage of fluid History of Present Illness: 27yo at 17w4d by sono with PPROM. No care. Previous miscarriage this year. History Source: Medical Record, Transfer Record Limitations to Obtaining History: No Limitations - Past Medical History [employer]: No: Alzheimer's, CVA, Dementia, Migraine, Multiple Sclerosis, Peripheral Neuropathy, Parkinson's, Seizure, Syncope, TIA, Vertigo, Other Cardiovascular: No: AFIB, Aneurysm, Aortic Insufficiency, Aortic Stenosis, CAD, CHF, Deep Vein Thrombosis, HTN, Hyperlipdemia, [place], Mitral Insufficiency, Mitral Stenosis, Murmur, Pulmonary Hypertension, Other Pulmonary: No: Asthma, Bronchitis, Cancer, COPD, O2 Dependent, Pneumonia, Previously Intubated, Pulmonary Embolus, Pulmonary Fibrosis, Sleep Apnea, Other Gastrointestinal: No: Ascites, Cancer, Constipation, Crohn's Disease, Diverticulitis, Diverticulosis, Esophageal Varices, Gastritis, GERD, GI Bleed, Hemorrhoids, Hiatal Hernia, Inflamatory Bowel Disease, Irritable Bowel Disease, Pancreatitis, Peptic Ulcer Disease, Ulcerative Colitis, Other Hepatobiliary: No: Cirrhosis, Cholelithiasis, Cholecystitis, Choledocholithiasis , Hepatitis A, Hepatitis B, Hepatitis C, Other ...: 4 ...Para: 2 ...Term: 2 ...: 0 ...Spon : 1 ...Induced : 0 Heme/Onc: No: Anemia, B12 Deficiency, Bleeding Disorder, Cancer, Current Chemotherapy, Current Radiation Therapy, Hemochromatosis, Hypercoaguable State, Myeloproliferative Synd, Sickle Cell Disease, Sickle Cell Trait, Thrombocytopenia, Other Infectious Disease: No: AIDS, C-Diff, Herpes Zoster, HIV, MRSA, STD's, Tuberculosis, VREF, Other Psych: No: Addictions, Anxiety, Bipolar, Depression, Panic, Psychosis, Schizophrenia, Other Musculoskeletal: No: Bursitis, Chronic low back pain, Hemiparesis, Hemiplegia, Osteoarthritis, Paraplegia, Other - Past Surgical History Past Surgical History: Yes: None Hx Myomectomy: No Hx Transabdominal Cerclage: No - Smoking History Smoking history: Current every day smoker Have you smoked in the past 12 months: Yes Aproximately how many cigarettes per day: 5 - Alcohol/Substance Use Hx Alcohol Use: No History of Substance Use: reports: Cocaine Home Medications - Allergies Allergies/Adverse Reactions: Allergies Allergy/AdvReac Type Severity Reaction Status Date / Time No Known Allergies Allergy Verified 04/14/18 06:23 - Home Medications Home Medications: Ambulatory Orders NK [No Known Home Medication] 10/30/16 Family Disease History - Family Disease History Family History: Unremarkable Review of Systems - Review of Systems Constitutional: reports: No Symptoms Eyes: reports: No Symptoms HENT: reports: No Symptoms Neck: reports: No Symptoms Cardiovascular: reports: No Symptoms Respiratory: reports: No Symptoms Gastrointestinal: reports: No Symptoms Genitourinary: reports: Vaginal Bleeding, Other (leaking of flud) Breasts: reports: No Symptoms Reported Musculoskeletal: reports: No Symptoms Integumentary: reports: No Symptoms Neurological: reports: No Symptoms Endocrine: reports: No Symptoms Physical Exam - Maternity Vital Signs: Vital Signs Temperature 98.4 F 04/14/18 08:03 Pulse Rate 90 04/14/18 08:03 Respiratory Rate 18 04/14/18 08:03 Blood Pressure 101/60 04/14/18 08:03 O2 Sat by Pulse Oximetry (%) 99 04/14/18 06:15 Constitutional: Yes: Well Nourished, No Distress, Calm Eyes: Yes: WNL, Conjunctiva Clear, EOM Intact HENT: Yes: WNL, Atraumatic, Normocephalic Neck: Yes: WNL, Supple, Trachea Midline Cardiovascular: Yes: WNL, Regular Rate and Rhythm - Abdominal Exam/OB Number of Fetuses: Single Presentation: Breech Contractions: No - Vaginal Exam/OB Vaginal Bleediing: No Amniotic Membrane Status: Ruptured - Physical Exam Integumentary: Yes: WNL - Labs Lab Results: CBC, BMP 04/14/18 06:20 04/14/18 06:20 Hemorrhage Risk Assessment - Risk Factors Medium Risk Factors: Yes: None High Risk Factors: Yes: None Risk Score: 1 Risk Level: Medium Risk Imaging - Results Ultrasound: Report Reviewed Problem List - Problems (1) premature rupture of membranes (PPROM) with unknown onset of labor Assessment/Plan: 27yo at 17 weeks with pprom transfer to [facility]; may need induction, possible D&E if fails transfer accepted at [facility] Code(s): O42.919 - PRETRM MELINDA ROM, UNSP TIME BETW RUPT AND ONST LABR, UNSP TRI
--- NOTE | 2018-04-15 11:51 | EKG ---
Test Reason : Blood Pressure : / mmHG Vent. Rate : 083 BPM Atrial Rate : 083 BPM P-R Int : 148 ms QRS Dur : 074 ms QT Int : 456 ms P-R-T Axes : 064 022 037 degrees QTc Int : 535 ms SINUS RHYTHM WITH SINUS ARRHYTHMIA NONSPECIFIC ST ABNORMALITY PROLONGED QT ABNORMAL ECG WHEN COMPARED WITH ECG OF 22-JUL-2017 05:31, NO SIGNIFICANT CHANGE WAS FOUND Confirmed by MAURA HICKEY MD ([id number]) on 04/15/2018 11:50:49 AM Referred By: Confirmed By:MAURA HICKEY MD
== END 2018-04-14 09:20 | disposition short-term general hospital (02) | DRG 566 ==
LOC: JER 06:12 → JLDR 07:00
PROVIDERS: ADMIT Obstetrics & Gynecology; ATTEND Obstetrics & Gynecology
DX: O42.912 Preterm premature rupture of membranes, unspecified as to length of time between rupture and onset of labor, second trimester (principal); Z3A.17 17 weeks gestation of pregnancy; O99.322 Drug use complicating pregnancy, second trimester; F17.210 Nicotine dependence, cigarettes, uncomplicated; O26.892 Other specified pregnancy related conditions, second trimester; F14.10 Cocaine abuse, uncomplicated; O41.02X0 Oligohydramnios, second trimester, not applicable or unspecified
CPT/HCPCS: 36415; 76801-TC; 80053; 80307; 81003; 81015; 85025; 85610; 86850; 86900; 86901; 93005; 93010; 99281-25